=== PATIENT | female | born 1980 | race American Indian/Alaskan Native ===

== ENCOUNTER 2018-08-15 09:15 | Emergency (ER) | payer BC ==
[2018-08-15 09:23] VITALS: BP 142/89
--- NOTE | 2018-08-15 11:18 | Emergency Department Report ---
ED Headache HPI - General Chief Complaint: Headache Stated Complaint: DIZZINESS/MIGRAINE Time Seen by Provider: 08/15/18 11:13 - History of Present Illness Initial Comments: Patient is 38 years old female with no significant past medical history. Patient presented to the ER complaining of headache. Patient stated that she never had any history of headache before but over the last 5 month she started having a right sided headache that comes and goes but for the last few days and became worse. Patient denied any fever, neck pain or rigidity. Patient also denied any weakness, numbness or tingling sensation. Patient denied any head injury. Allergies/Adverse Reactions: Allergies latex Adverse Reaction (Verified 03/04/14 21:15) Unknown Penicillins Adverse Reaction (Verified 03/04/14 21:15) Itching Home Medications: Ambulatory Orders Ibuprofen [Motrin] 800 mg PO Q8H PRN #14 tablet 03/05/14 Polyethylene Glycol 3350 [Miralax 3350] 17 gm PO DAILY #1 bottle 03/05/14 Ketorolac [Toradol] 10 mg PO Q6H PRN #20 tablet 08/15/18 ED Review of Systems ROS: Stated complaint: DIZZINESS/MIGRAINE Other details as noted in HPI Comment: All other systems reviewed and negative Constitutional: denies: chills, fever Respiratory: denies: cough, orthopnea, shortness of breath, SOB with exertion, SOB at rest, wheezing Cardiovascular: denies: chest pain, palpitations, dyspnea on exertion Gastrointestinal: denies: abdominal pain, nausea, vomiting, diarrhea, constipation, hematemesis, melena, hematochezia Musculoskeletal: denies: back pain Neurological: headache. denies: weakness, numbness, paresthesias, confusion ED Past Medical Hx - Past Medical History Previous Medical History?: Yes Hx Headaches / Migraines: Yes - Surgical History Past Surgical History?: Yes Additional Surgical History: Tubal ligation - Social History Smoking Status: Never Smoker Substance Use Type: None - Medications Home Medications: Home Medications Medication Instructions Recorded Confirmed Last Taken Type Ibuprofen [Motrin] 800 mg PO Q8H PRN #14 tablet 03/05/14 Unknown Rx Polyethylene Glycol 3350 [Miralax 17 gm PO DAILY #1 bottle 03/05/14 Unknown Rx 3350] Ketorolac [Toradol] 10 mg PO Q6H PRN #20 tablet 08/15/18 Unknown Rx ED Physical Exam - General Limitations: No Limitations General appearance: alert, in no apparent distress - Head Head exam: Present: atraumatic, normocephalic, normal inspection - Eye Eye exam: Present: normal appearance, PERRL - ENT ENT exam: Present: normal exam, normal orophraynx, mucous membranes moist - Neck Neck exam: Present: normal inspection, full ROM. Absent: tenderness, meningismus, lymphadenopathy, thyromegaly - Respiratory Respiratory exam: Present: normal lung sounds bilaterally - Cardiovascular Cardiovascular Exam: Present: regular rate, normal rhythm, normal heart sounds - GI/Abdominal GI/Abdominal exam: Present: soft, normal bowel sounds. Absent: distended, tenderness, guarding, rebound, rigid, organomegaly, mass, bruit, pulsatile mass, hernia - Extremities Exam Extremities exam: Present: normal inspection, full ROM, normal capillary refill - Back Exam Back exam: Present: normal inspection, full ROM. Absent: CVA tenderness (R), CVA tenderness (L), muscle spasm, paraspinal tenderness, vertebral tenderness - Neurological Exam Neurological exam: Present: alert, oriented X3, CN II-XII intact, normal gait, reflexes normal - Skin Skin exam: Present: warm, intact, normal color ED Course Vital Signs 08/15/ 09:20 Temperature 97.8 F Pulse Rate 77 Respiratory 18 Rate Blood Pressure 142/89 O2 Sat by Pulse 97 Oximetry ED Medical Decision Making - Radiology Data Radiology results: report reviewed CT brain is unremarkable. - Medical Decision Making Patient is 38 years old female with no significant past medical history. Patient presented to the ER complaining of headache. Patient stated that she never had any history of headache before but over the last 5 month she started having a right sided headache that comes and goes but for the last few days and became worse. Patient denied any fever, neck pain or rigidity. Patient also denied any weakness, numbness or tingling sensation. Patient denied any head injury. CT brain is unremarkable. Patient advised to follow-up with her primary care physician in the next 2-3 days and to return to the ER if symptoms are not improved. Critical care attestation.: If time is entered above; I have spent that time in minutes in the direct care of this critically ill patient, excluding procedure time. ED Disposition Clinical Impression: Headache Disposition: DC-01 TO HOME OR SELFCARE Is pt being admited?: No Condition: Stable Instructions: Acute Headache (ED) Prescriptions: Ketorolac [Toradol] 10 mg PO Q6H PRN #20 tablet PRN Reason: Pain Referrals: [facility] MD BRANDAN [Primary Care Provider] - 3-5 Days Forms: Work/School Release Form(ED)
--- NOTE | 2018-08-15 13:36 | Cat Scan Report ---
PROCEDURE: CT HEAD/BRAIN WO CON TECHNIQUE: Computerized tomography of the head was performed without contrast material. CT DOSE LENGTH PRODUCT: 920.5 mGy-cm. HISTORY: headache COMPARISONS: None currently available. FINDINGS: There is no evidence for acute ischemia. There is no hemorrhage. There is no midline shift. There is no hydrocephalus. There is no mass. Age appropriate nieves-white matter attenuation is noted. There is no calvarial fracture. The temporal bones demonstrate aerated mastoid air cells. The middle ears appear unremarkable. Paranasal sinuses are unremarkable. Globes are intact. IMPRESSION: * No acute intracranial findings. This document is electronically signed by Kristopher Lima MD., August 15 2018 01:33:59 PM ET
== END 2018-08-15 13:58 | disposition home or self-care (01) ==
LOC: ED 09:15
DX: G43.909 Migraine, unspecified, not intractable, without status migrainosus (principal); Z98.51 Tubal ligation status; Z91.040 Latex allergy status; Z88.0 Allergy status to penicillin
CPT/HCPCS: 70450